=== PATIENT | male | born 1935 | race Caucasian/White ===

== ENCOUNTER 2017-06-23 10:04 | Inpatient (IN) | payer OTHER, MEDICAID ==
[~2017-06-23] VITALS: Ht 185.4 cm; Wt 79.5 kg
[2017-06-23] VITALS (11 sets, daily range): BP systolic 122–152; BP diastolic 58–81; PULSE 34–52; RESP 18–20; Ht 185.4 cm; Wt 79.5 kg
[2017-06-23] MEDS ORDERED: ASPIRIN 81 MG TAB PO ONE (10:30)
[2017-06-23] MEDS ORDERED: FUROSEMIDE 40 MG INJ IV ONE (10:30)
[2017-06-23] MEDS ORDERED: NITROGLYCERIN (SL) 0.4 MG TAB SL ONE (10:30)
[2017-06-23] MEDS ORDERED: ENALAPRILAT 1.25 MG INJ IV ONE (10:30)
[2017-06-23 10:50] LABS: BASOPHIL # 0.1 10^3/ul (0.0-0.1); BASOPHILS % 0.9 % (0.0-2.0); EOSINOPHILS # 0.2 10^3/ul (0.0-0.5); EOSINOPHILS % 2.3 % (0.0-7.0); HEMATOCRIT 39.3 % (42.0-52.0); HEMOGLOBIN 12.3 g/dl (14.0-18.0); LYMPHOCYTES # 1.5 10^3/ul (0.8-2.9); LYMPHOCYTES % 20.9 % (15.0-51.0); MEAN CORPUSCULAR HEMOGLOBIN 26.8 pg (29.0-33.0); MEAN CORPUSCULAR HGB CONC 31.3 g/dl (32.0-37.0); MEAN CORPUSCULAR VOLUME 85.6 fl (82.0-101.0); MONOCYTE # 0.6 10^3/ul (0.3-0.9); MONOCYTES % 7.8 % (0.0-11.0); NEUTROPHIL # 4.8 10^3/ul (1.6-7.5); NEUTROPHILS % 67.8 % (39.0-77.0); PLATELET COUNT 143 10^3/UL (140-415); RED BLOOD COUNT 4.59 10^6/ul (4.70-6.10); RED CELL DISTRIBUTION WIDTH 14.3 % (11.5-14.5); WHITE BLOOD COUNT 7.1 10^3/ul (4.8-10.8)
--- NOTE | 2017-06-23 11:37 | RADRPT ---
PROCEDURE: XR Chest. CLINICAL INDICATION: Abdominal Pain TECHNIQUE: PA and Lateral views of the chest were obtained. COMPARISON: None. FINDINGS: Soft tissues project over an partially obscure both lung apices, limiting evaluation. There are low lung volumes. The cardiomediastinal silhouette is within normal limits for portable technique. There are atherosclerotic calcifications of the aortic arch. There is a probable small left pleural effusion with adjacent atelectasis. Underlying consolidation cannot be completely excluded. No pneumothorax or significant right pleural effusion is seen. No evidence of significant pulmonary vascular congestion. There are degenerative changes of the visualized spine. IMPRESSION: 1. Small left pleural effusion with adjacent atelectasis. Underlying consolidation cannot be compl etely excluded. 2. Thoracic aortic atherosclerotic disease. RPTAT: PP Physician Eduardo Date Time Electronically viewed and signed by Physician Eduardo on 06/23/2017 11:36 /
[2017-06-23] MEDS ORDERED: KETOROLAC 15 MG INJ IV STA (11:42)
[2017-06-23 11:45] LABS: ALANINE AMINOTRANSFERASE 29 IU/L (13-69); ALBUMIN 3.8 g/dl (3.3-4.9); ALBUMIN/GLOBULIN RATIO 1.35; ALKALINE PHOSPHATASE 36 IU/L (42-121); ANION GAP 18 (8-16); ASPARTATE AMINO TRANSFERASE 19 IU/L (15-46); BILIRUBIN,INDIRECT 0.2 mg/dl (0-1.1); BILIRUBIN,TOTAL 0.2 mg/dl (0.2-1.3); BLOOD UREA NITROGEN 15 mg/dl (7-20); CALCIUM 8.9 mg/dl (8.4-10.2); CARBON DIOXIDE 25 mmol/L (21-31); CHLORIDE 106 mmol/L (97-110); CREATININE 0.94 mg/dl (0.61-1.24); GLUCOSE 91 mg/dl (70-220); SODIUM 144 mmol/L (135-144); TOTAL PROTEIN 6.6 g/dl (6.1-8.1)
[2017-06-23 11:50] LABS: POTASSIUM 5.1 mmol/L (3.5-5.1)
--- NOTE | 2017-06-23 11:57 | ERA ---
ER Documentation Chief Complaint Date/Time DATE: 06/23/17 TIME: 11:50 Chief Complaint BROUGHT BY RA 100, c/o chest pain started 06 , HX HEART STENT ,AL HPI 81-year-old man brought in by EMS from home for complaints of pressure-like substernal chest pain beginning this morning around 6:30 AM. Pain has been constant nonradiating and similar to previous episodes of AL. Patient states he has a history of PCI with coronary artery stent placement. He states over the last 2 weeks his lower extremities have becomes more swollen, and that they are not usually this swollen. He denies fevers or chills, no cough, no headache or blurry vision, no loss of consciousness, no vomiting or diarrhea. ROS All systems reviewed and are negative except as per history of present illness. Medications Home Meds Reported Medications Acetaminophen with Codeine (Tylenol with Codeine #4 Tablet) 1 Each Tablet, 1 TAB PO, TAB 06/23/17 Tramadol Hcl* (Ultram*) 50 Mg Tablet, 50 MG PO Q6H Y for PAIN, TAB 06/23/17 Temazepam* (Temazepam*) 30 Mg Capsule, 30 MG PO HS Y for INSOMNIA, CAP 06/23/17 Tamsulosin Hcl* (Tamsulosin Hcl*) 0.4 Mg Cap.er.24h, 0.4 MG PO HS, CAP 06/23/17 Ropinirole Hcl* (Requip*) 1 Mg Tablet, 2 MG PO HS, TAB 06/23/17 Ranitidine Hcl* (Ranitidine Hcl*) 150 Mg Tablet, 150 MG PO Q12, #60 TAB 06/23/17 Potassium Chloride* (K-Dur*) 10 Meq Tab.prt.sr, 10 MEQ PO DAILY, TAB 06/23/17 Polyethylene Glycol* (Miralax*) 17 Gm Powd.pack, 17 GM PO DAILY, #30 PACKET 06/23/17 Metformin Hcl* (Metformin Hcl*) 1,000 Mg Tablet, 1000 MG PO WITH BREAKFAST DINNE , #30 TAB 06/23/17 Pregabalin* (Lyrica*) 75 Mg Capsule, 75 MG PO DAILY, CAP 06/23/17 Losartan Potassium* (Losartan Potassium*) 25 Mg Tablet, 25 MG PO DAILY, TAB 06/23/17 Insulin Detemir (Levemir Flextouch) 100 Unit/1 Ml Insuln.pen, 12 UNIT SQ AM 06/23/17 Insulin Aspart* (Novolog Insulin Pen*) 100 Unit/Ml Soln, 0 SC .SLIDING SCALE AC , EA 06/23/17 Diclofenac Sodium* (Voltaren* Gel) 1% -100 Gm Gel, 2 GM TOP BID, #1 TUB 06/23/17 Docusate Sodium* (Docusate Sodium*) 100 Mg Capsule, 100 MG PO DAILY, #30 CAP 06/23/17 Carvedilol* (Coreg*) 3.125 Mg Tablet, 3.125 MG PO BID, #60 TAB 06/23/17 Atorvastatin Calcium* (Atorvastatin Calcium*) 20 Mg Tablet, 20 MG PO QHS, #30 TAB 06/23/17 Amlodipine Besylate* (Amlodipine Besylate*) 10 Mg Tablet, 10 MG PO DAILY, #30 TAB 06/23/17 Aspirin* (Aspirin* Chew) 81 Mg Tab.chew, 81 MG PO DAILY, TAB.CHEW 06/23/17 Allergies Allergies: Coded Allergies: No Known Allergy (Unverified , 06/23/17) PMhx/Soc Hypertension, coronary artery disease, AL, congestive heart failure FmHx Family History: No diabetes Physical Exam Vitals Vital Signs Date Time Temp Pulse Resp B/P Pulse Ox O2 Delivery O2 Flow Rate FiO2 06/23/17 10:53 61 20 129/64 98 Nasal Cannula 2.0 06/23/17 10:05 97.6 65 20 116/62 97 06/23/17 10:05 Nasal Cannula 2 Physical Exam GENERAL: Well-developed, well-nourished, well-hydrated, in no apparent distress , looks nontoxic in appearance, afebrile HEENT: Moist mucous membranes, pink conjunctiva, no cervical spine tenderness or step-off deformities, no goiter, no jaundice or icterus, extraocular movements intact without pain. No submandibular induration, and no pharyngeal erythema NEURO: Alert and oriented 3, cranial nerves II through XII intact bilaterally, pupils equal round reactive to light, no focal deficits or facial asymmetry, sensation intact distally Strength 5/5 in upper and lower extremities bilaterally CARDIAC: Regular rate and rhythm, no murmurs rubs or gallops LUNGS: Clear bilaterally no wheezing crackles or stridor ABDOMEN: Soft nontender, no guarding, no rigidity, no rebound, no psoas sign no obturator sign. Normoactive bowel sounds SKIN: Warm and dry to touch, no abrasions, contusions, or hematomas, no lacerations, no ecchymosis, no target lesions, and without ulcers EXTREMITIES: No clubbing cyanosis, 3+ pitting edema in the lower extremities bilaterally calves are bilaterally symmetrical, no Homans sign, no popliteal cord sign. Distal pulses equal and bilateral PSYCH: Normal affect without agitation or irritability Result Diagram: 06/23/17 1032 06/23/17 1032 Results 24 hrs Laboratory Tests Test 06/23/17 10:32 White Blood Count 7.110^3/ul Red Blood Count 4.5910^6/ul Hemoglobin 12.3g/dl Hematocrit 39.3% Mean Corpuscular Volume 85.6fl Mean Corpuscular Hemoglobin 26.8pg Mean Corpuscular Hemoglobin Concent 31.3g/dl Red Cell Distribution Width 14.3% Platelet Count 08453^3/UL Mean Platelet Volume 11.0fl Neutrophils % 67.8% Lymphocytes % 20.9% Monocytes % 7.8% Eosinophils % 2.3% Basophils % 0.9% Nucleated Red Blood Cells % 0.0/100WBC Neutrophils # 4.810^3/ul Lymphocytes # 1.510^3/ul Monocytes # 0.610^3/ul Eosinophils # 0.210^3/ul Basophils # 0.110^3/ul Nucleated Red Blood Cells # 0.010^3/ul Sodium Level 144mmol/L Potassium Level 5.1mmol/L Chloride Level 106mmol/L Carbon Dioxide Level 25mmol/L Anion Gap 18 Blood Urea Nitrogen 15mg/dl Creatinine 0.94mg/dl Glucose Level 91mg/dl Calcium Level 8.9mg/dl Total Bilirubin 0.2mg/dl Direct Bilirubin 0.00mg/dl Indirect Bilirubin 0.2mg/dl Aspartate Amino Transf (AST/SGOT) 19IU/L Alanine Aminotransferase (ALT/SGPT) 29IU/L Alkaline Phosphatase 36IU/L Troponin I < 0.012ng/ml Total Protein 6.6g/dl Albumin 3.8g/dl Globulin 2.80g/dl Albumin/Globulin Ratio 1.35 Lipase 87U/L Current Medications Medications (Trade) Dose Ordered Sig/Phuc Route PRN Reason Start Time Stop Time Status Last Admin Dose Admin Aspirin (Aspirin) 324 mg ONCE ONCE PO 06/23/17 10:30 06/23/17 10:31 DC 06/23/17 10:43 Furosemide (Lasix) 40 mg ONCE ONCE IV 06/23/17 10:30 06/23/17 10:31 DC 06/23/17 10:40 Enalaprilat (Vasotec Iv) 1.25 mg ONCE ONCE IV 06/23/17 10:30 06/23/17 10:31 DC 06/23/17 10:40 Nitroglycerin (Nitroglycerin (Sl Tab) 0.4 Mg) 1 tab ONCE ONCE SL 06/23/17 10:30 06/23/17 10:31 DC 06/23/17 10:39 Procedures/MDM IV line was established patient was placed on padded products finisher rhythm strip revealed a wide-complex rhythm at about 60 bpm. Patient was afebrile. EKG performed, read by me revealed a sinus rhythm at 60 bpm with frequent pauses , left axis deviation and a right bundle branch block, QRS duration 156 ms, no concerning ST elevations or depressions noted. Chest X-ray 1V Interpreted by me: Soft Tissue: No acute abnormalities Bones: No acute abnormalities Mediastinum/Cardiac Silhouette/Lungs: No acute infiltrates, mild left pleural effusion, no pneumothorax, no end of the diaphragm I administered aspirin 324 mg p.o. for cardioprotective measures, enalapril 1.25 mg IV for hypertension, nitroglycerin 0.4 mg sublingual, and furosemide 40 mg IV 1 for diuresis. CBC and electrolytes are normal, liver function tests were normal, troponin was negative. Cardiac Critical Care: Time: 38 minutes, this was time separate from other billable procedures Treatments/Evaluations: Close monitoring for dangerous arrhythmia and cardiovascular collapse, while treating with advance cardiac medications and techniques. Patient was admitted to telemetry setting for continued medical management cardiology consultation. For chest pain he received Toradol 15 mg IV 1. Departure Diagnosis: Primary Impression: Chest pain Qualified Code: R07.9 - Chest pain, unspecified type Additional Impressions: Hypertension Qualified Code: I10 - Essential hypertension Pleural effusion Peripheral edema Condition: RAMIRO Heaton MD Jun 23, 2017 11:57 Procedures/MDM IV line was established patient was placed on padded products finisher rhythm strip revealed a wide-complex rhythm at about 60 bpm. Patient was afebrile. EKG performed, read by me revealed a sinus rhythm at 60 bpm with frequent pauses , left axis deviation and a right bundle branch block, QRS duration 156 ms, no concerning ST elevations or depressions noted. Chest X-ray 1V Interpreted by me: Soft Tissue: No acute abnormalities Bones: No acute abnormalities Mediastinum/Cardiac Silhouette/Lungs: No acute infiltrates, mild left pleural effusion, no pneumothorax, no end of the diaphragm I administered aspirin 324 mg p.o. for cardioprotective measures, enalapril 1.25 mg IV for hypertension, nitroglycerin 0.4 mg sublingual, and furosemide 40 mg IV 1 for diuresis. CBC and electrolytes are normal, liver function tests were normal, troponin was negative. Cardiac Critical Care: Time: 38 minutes, this was time separate from other billable procedures Treatments/Evaluations: Close monitoring for dangerous arrhythmia and cardiovascular collapse, while treating with advance cardiac medications and techniques. Patient was admitted to telemetry setting for continued medical management cardiology consultation. For chest pain he received Toradol 15 mg IV 1. Departure Diagnosis: Primary Impression: Chest pain Qualified Code: R07.9 - Chest pain, unspecified type Additional Impressions: Hypertension Qualified Code: I10 - Essential hypertension Pleural effusion Peripheral edema Condition: RAMIRO Heaton MD Jun 23, 2017 11:57
[2017-06-23 11:58] LABS: TROPONIN-I < 0.012 ng/ml (0.00-0.12)
[2017-06-23] MEDS ORDERED: INSU100I27 SQ (11:59)
[2017-06-23] MEDS ORDERED: NOVO3I SC (11:59)
[2017-06-23] MEDS ORDERED: TAMS0.4C2 PO (11:59)
[2017-06-23] MEDS ORDERED: CARV3.12 PO (11:59)
[2017-06-23] MEDS ORDERED: DICL100G37 TOP (11:59)
[2017-06-23] MEDS ORDERED: ATOR20TA38 PO (11:59)
[2017-06-23] MEDS ORDERED: METF1000 PO (11:59)
[2017-06-23] MEDS ORDERED: POLY17PO6 PO (11:59)
[2017-06-23] MEDS ORDERED: LYR75 PO (11:59)
[2017-06-23] MEDS ORDERED: RANI150T5 PO (11:59)
[2017-06-23] MEDS ORDERED: ACET-820 PO (11:59)
[2017-06-23] MEDS ORDERED: POTA10TA37 PO (11:59)
[2017-06-23] MEDS ORDERED: TRAM-40 PO (11:59)
[2017-06-23] MEDS ORDERED: AMLO-147 PO (11:59)
[2017-06-23] MEDS ORDERED: LOSA25TA5 PO (11:59)
[2017-06-23] MEDS ORDERED: ASPI81TA3 PO (11:59)
[2017-06-23] MEDS ORDERED: ROPI1TAB24 PO (11:59)
[2017-06-23] MEDS ORDERED: DOCU-159 PO (11:59)
[2017-06-23] MEDS ORDERED: TEMA30CA PO (11:59)
[2017-06-23] MEDS ORDERED: hydrALAzine 20 MG INJ IV PRN (12:00)
[2017-06-23] MEDS ORDERED: HYDROCODONE/APAP (5/325) TAB PO PRN (12:00)
[2017-06-23] MEDS ORDERED: NITROGLYCERIN (SL) 0.4 MG TAB SL PRN (12:00)
[2017-06-23] MEDS ORDERED: DOCUSATE SODIUM 100 MG CAP PO PRN (12:00)
[2017-06-23] MEDS ORDERED: ACETAMINOPHEN 325 MG TAB PO PRN ×2 (12:00→18:30)
[2017-06-23] MEDS ORDERED: NACL 0.9% 3 ML SYG IV SCH (12:00)
[2017-06-23] MEDS ORDERED: ACETAMINOPHEN 650 MG SUPP PR PRN (12:00)
[2017-06-23] MEDS ORDERED: ONDANSETRON 4 MG INJ IV PRN (12:00)
[2017-06-23] MEDS ORDERED: ZOLPIDEM 5 MG TAB PO PRN (14:00)
[2017-06-23] MEDS ORDERED: NA PHOSPHATE/BIPHOS 133 ML ENEMA PR PRN (14:00)
--- NOTE | 2017-06-23 14:09 | HP ---
Date/Time of Note Date/Time of Note DATE: 06/23/17 TIME: 13:54 Assessment/Plan VTE Prophylaxis VTE Prophylaxis Intervention: LMWH Lines/Catheters IV Catheter Type (from Nrsg): Saline Lock Assessment/Plan Chief Complaint/Hosp Course 1. Chest pain, rule out acute coronary syndrome versus other. -Admit to telemetry -Serial EKG, 2D echocardiogram, serial cardiac enzyme markers. -Aspirin, sublingual nitroglycerin PRN, prophylactic anticoagulation and morphine PRN -Hold beta-jaylyn secondary to bradycardia. -Cardiology consult due to high risk factors. 2. Peripheral edema, rule out congestive heart failure. Chest x-ray with possible pleural effusion per chest x-ray findings. -Patient is status post Lasix. We will continue Low-dose diuretics -Obtain BNP, 2D echocardiogram. -Obtain CT chest for further investigation on x-ray finding. 3. Essential hypertension. -Resume Norvasc. Again, we will hold Coreg secondary to bradycardia. -Follow-up with cardiology recommendation. -Hydralazine PRN for SBP above 160. 4. Type 2 diabetes. -Obtain A1c. We will place patient on Accu-Cheks and insulin sliding scale. -Lantus 12 units daily. -Hold metformin for now. 5. Sinus arrhythmia/bradycardia -Hold beta-blockers and cardiology consult for further management. 6. Hypercholesterolemia. -Resume home statin. 7. Insomnia -Resume home medications 8. Chronic constipation -Resume home medications, if not effective, Fleet enema will be provided. DVT prophylaxis: Lovenox PUD prophylaxis: Pepcid Plan: Patient will be admitted to telemetry. We will continue to monitor EKG and cardiac enzymes. Follow-up with 2D echocardiogram, A1c, TSH and lipid panel. The rest of the management depend on clinical course, further studies and input from enterprise resource planning consultant. Approximately 60 minutes was spent on this history and physical. Case discussed with Dr. Candelaria Problems: HPI/ROS Admit Date/Time Admit Date/Time Jun 23, 2017 at 11:15 Hx of Present Illness This is a 81-year-old male with a past medical history of essential hypertension , coronary artery disease with reported PCI with stent placed in the past, type 2 diabetes, hypercholesterolemia, insomnia, obesity, chronic constipation, arthritis, BPH, left total knee replacement, cranial surgery for brain tumor, occasional urinary incontinence, recent urinary tract infection, who was brought by EMS with complaints of left-sided chest pain which started this morning around 6:30 AM. Patient was asked to call EMS and go to the emergency room by his primary care provider. Patient denied any radiation of his pain. Pain was reproducible with movement and touch. He also reported pain being constant. Patient also reported worsening constipation with abdominal pain and lower extremity swelling which started 2 weeks ago. Patient denied any fever, chills, dizziness, loss of consciousness, diarrhea, nausea, vomiting, headache, cough or other constitutional symptoms. Initial vital signs temperature 97.6 pulse rate 65 respiratory rate 20, blood pressure 116/62 and oxygen saturation 97%.. CBC and BMP within acceptable range. Initial troponin negative. EKG with sinus rhythm at 60 bpm with right bundle branch block. However, his heart rate remained in the lower side at high mid 40s in the emergency room. Chest x-ray with small left pleural effusion with adjacent atelectasis, underlying consolidation cannot be completely excluded. patient received aspirin 324 mg, sublingual nitroglycerin 0.4 mg and Lasix 40 mg IV in the emergency room. Patient also received Vasotec 1.25 mg IV in the emergency room, however I am unable to locate a high blood pressure on this patient in the emergency room. A clinical decision was made to admit him for further evaluation. ROS A 12 point review of system was assessed and is negative other than what is mentioned in HPI. PMH/Family/Social Past Medical History See HPI Past Surgical History See HPI Social History Denied history of smoking, alcohol or illicit drug use. Smoking Status: Never smoker Exam/Review of Systems Vital Signs Vitals Vital Signs Date Time Temp Pulse Resp B/P Pulse Ox O2 Delivery O2 Flow Rate FiO2 06/23/17 13:11 45 06/23/17 13:00 97.8 20 152/81 98 Nasal Cannula 2.0 Exam Exam General: Well developed,adequately built, not in any acute distress . HEENT: Normocephalic, Atraumatic, No laceration or hematoma; Eyes: PEERL, Conjunctiva clear, Anicteric sclera Neck: Supple without any lymphadenopathy, nontender, no JVD, no carotid bruits, trachea midline, no thyromegaly Cardiac: S1, S2 auscultated, regular rhythm and rate, no mumurs or gallop Pulmonary: Diminished breath sound bibasilar. Normal respiratory effort. Chest clear to auscultation bilaterally, no adventitious breath sounds GI: Abdomen normal to inspection. Soft, non tender, non- distended, no masses, no rebound tenderness or guarding. Bowel sounds active on all four quadrants Genitourinary: Deferred Extremities: 2+ pitting edema on bilateral lower extremities. No cyanosis, clubbing. Pulses [2+] bilaterally. Full ROM on all four extremities. No focal weakness appreciated. Neurologic: Alert to person, place, time, and situation. Affect appropriate, intact sensation. Skin: Clean,dry, and intact. No ecchymosis, no rashes, or lesions Labs Result Diagram: 06/23/17 1032 06/23/17 1032 Medications Medications Current Medications Ondansetron HCl (Zofran Inj) 4 mg Q6H PRN IV NAUSEA AND/OR VOMITING; Start at 12:00 Acetaminophen (Tylenol Tab) 650 mg Q6H PRN PO PAIN LEVEL 1-3 OR FEVER; Start at 12:00 Acetaminophen (Tylenol Supp) 650 mg Q6H PRN [place] PAIN LEVEL 1-3 OR FEVER; Start 06/23/17 at 12:00 Acetaminophen/ Hydrocodone Bitart ([place] (5/325)) 1 tab Q6H PRN PO MODERATE PAIN LEVEL 4-6; Start 06/23/17 at 12:00 Morphine Sulfate (morphine) 2 mg Q4H PRN IV SEVERE PAIN LEVEL 7-10; Start 06/23 at 12:00 Docusate Sodium (Colace) 100 mg Q12H PRN PO CONSTIPATION; Start 06/23/17 at 12: 00 Famotidine (Pepcid) 20 mg Q12 PO ; Start 06/23/17 at 21:00 Enoxaparin Sodium (Lovenox) 40 mg DAILY SC ; Start 06/24/17 at 09:00 Aspirin (Aspirin) 81 mg DAILY PO ; Start 06/24/17 at 09:00 Nitroglycerin (Nitroglycerin (Sl Tab) 0.4 Mg) 1 tab Q5M PRN SL ANGINA; Start at 12:00 Hydralazine HCl (Apresoline) 10 mg Q6 PRN IV SBP>160; Start 06/23/17 at 12:00 Amlodipine Besylate (Norvasc) 10 mg DAILY PO ; Start 06/24/17 at 09:00; Status UNV Atorvastatin Calcium (Lipitor) 20 mg QHS PO ; Start 06/23/17 at 21:00; Status UNV Diclofenac Sodium (Voltaren 1% Gel) 2 gm BID TP ; Start 06/23/17 at 21:00; Status UNV Docusate Sodium (Colace) 100 mg DAILY PO ; Start 06/24/17 at 09:00; Status UNV Losartan Potassium (Cozaar) 25 mg DAILY PO ; Start 06/24/17 at 09:00; Status UNV Polyethylene Glycol (Miralax) 17 gm DAILY PO ; Start 06/24/17 at 09:00; Status UNV Pregabalin (Lyrica) 75 mg DAILY PO ; Start 06/24/17 at 09:00; Status UNV Ropinirole HCl (Requip) 2 mg HS PO ; Start 06/23/17 at 21:00; Status UNV Tamsulosin HCl (Flomax) 0.4 mg HS PO ; Start 06/23/17 at 21:00; Status UNV Miscellaneous Information 30 mg HS PRN PO INSOMNIA; Start 06/23/17 at 14:00; Status UNV MARV LEWIS NP Jun 23, 2017 14:04
[2017-06-23] MEDS: morphine 2 MG INJ IV PRN ×2 (14:19→21:15)
[2017-06-23] MEDS ORDERED: GLUCOSE GEL 15 GRAM TUBE PO PRN ×2 (14:30)
[2017-06-23] MEDS ORDERED: DEXTROSE 50% 50 ML SYRINGE IV PRN ×2 (14:30)
[2017-06-23] MEDS ORDERED: GLUCAGON 1 MG INJ IM PRN (14:30)
[2017-06-23] MEDS ORDERED: GLUCOSE GEL 15 GRAM TUBE BUCCAL PRN (14:30)
--- NOTE | 2017-06-23 15:07 | RADRPT ---
Echocardiogram Report Patient Name: MADHURI ROJO Gender: Male Date: 1935 Study Date: 23-Jun-2017 Bin Piler: Kamran [facility] Location: [id number] Ref. Physician: MARV LEWIS Quality: Adequate Procedures: Transthoracic echocardiogram with complete 2D, M-Mode, and doppler examination. Indications: Chest Pain. 2D/M Mode Doppler Measurement Value Normal Ranges Measurement Value Normal Ranges LVIDd 2D 4.2 3.5 - 5.6 cm AV Peak Brent 1.2 m/sec LVIDs 2D 2.8 2.1 - 4.1 cm AV Peak PG 6.0 mmHg FS 2D 34.2 % AI Peak PG 25.0 mmHg LVPWd 2D 1.4 0.6 - 1.1 cm AI Peak Brent 2.5 m/sec IVSd 2D 1.3 0.6 - 1.1 cm AI PHT 1026.0 msec IVS/LVPW 2D 1.0 LVOT Peak Brent 1.1 m/sec AoR Diam 2D 3.1 2.0 - 3.7 cm LVOT Peak PG 5.0 mmHg LA/Ao 2D 1 0 - 1 MV E Peak Brent 0.8 m/sec EDV 2D 76.2 cm3 MV A Peak Brent 0.5 m/sec ESV 2D 21.7 cm3 MV E/A 1.4 LA Dimen 2D 4.0 2.3 - 4.0 cm MV Decel Time 296 msec MV E/A 1.4 TR Peak Brent 2.6 m/sec TR Peak PG 28.0 mmHg RVSP 38.0 mmHg Findings Left Ventricle: Normal left ventricular systolic function. Normal left ventricular cavity size. Mild concentric left ventricular hypertrophy. Ejection fraction is visually estimated at 55 %. Right Ventricle: Normal right ventricular size. Normal right ventricular systolic function. Left Atrium: The left atrium is normal in size. Right Atrium: The right atrium is normal in size. Mitral Valve: Mitral valve leaflets appear mildly thickened. Mild mitral annular calcification. Trace mitral regurgitation. Aortic Valve: Aortic sclerosis without stenosis. Mild aortic valve regurgitation. Tricuspid Valve: Normal appearance of the tricuspid valve. Estimated peak PA systolic pressure 38 mmHg. There is mild tricuspid regurgitation. Pulmonic Valve: Pulmonic valve not well visualized. There is trace pulmonic regurgitation. Pericardium: Normal pericardium with no significant pericardial effusion. Aorta: Normal aortic root. IVC: Normal size and normal respiratory collapse consistent with normal right atrial pressure. Conclusions 1.Normal left ventricular systolic function. Normal left ventricular cavity size. Mild concentric left ventricular hypertrophy. Ejection fraction is visually estimated at 55 %. 2.Mitral valve leaflets appear mildly thickened. Mild mitral annular calcification. Trace mitral regurgitation. 3.Aortic sclerosis without stenosis. Mild aortic valve regurgitation. 4.Normal appearance of the tricuspid valve. Estimated peak PA systolic pressure 38 mmHg. There is mild tricuspid regurgitation. Electronically Signed By: Sheldon Loera 23-Jun-2017 15:05:37 -0700 Patient Name: MADHURI ROJO Study Date: 23-Jun-2017 [id number]
[2017-06-23 16:59] LABS: CREATINE KINASE 51 IU/L (23-200)
[2017-06-23] MEDS: INSULIN ASPART [NOVOLOG] 3 ML PEN SC SCH ×2 (17:08→21:00)
[2017-06-23 17:23] LABS: CK-MB 1.08 ng/ml (0.0-2.4); TROPONIN-I < 0.012 ng/ml (0.00-0.12)
[2017-06-23] MEDS ORDERED: ROPINIROLE 2 MG PO SCH (21:00)
[2017-06-23] MEDS: FAMOTIDINE 20 MG TAB PO SCH (21:00)
[2017-06-23] MEDS: INSULIN GLARGINE [LANtus] 3 ML PEN SC SCH (21:00)
[2017-06-23] MEDS: DICLOFENAC SODIUM 1% GEL 100 GM TUBE TP SCH (21:00)
[2017-06-23] MEDS: TAMSULOSIN (SR) 0.4 MG CAP PO SCH (21:00)
[2017-06-23] MEDS: ATORVASTATIN 20 MG TAB PO SCH (21:00)
[2017-06-23] MEDS ORDERED: ROPINIROLE 1 MG TAB PO SCH (21:00)
[2017-06-23] MEDS: ROPINIROLE 1 MG TAB PO SCH (21:00)
[2017-06-24] VITALS (10 sets, daily range): BP systolic 116–168; BP diastolic 58–72; PULSE 44–69; RESP 16–20
[2017-06-24 00:33] LABS: CREATINE KINASE 43 IU/L (23-200)
[2017-06-24 00:49] LABS: CK-MB 1.18 ng/ml (0.0-2.4); TROPONIN-I < 0.012 ng/ml (0.00-0.12)
[2017-06-24] MEDS ORDERED: ACCU-CHEK XX SCH (02:00)
[2017-06-24] MEDS: ACCU-CHEK XX SCH ×2 (02:00→21:10)
--- NOTE | 2017-06-24 03:15 | RADRPT ---
PROCEDURE: CT Chest without contrast. CLINICAL INDICATION: Pleural effusion. TECHNIQUE: CT scan of the chest without contrast was performed on a multidetector high-resolution CT scanner. Axial, sagittal and coronal reformatted images were obtained from the axial source imag es. The total exam CTDI equals 15.98 mGy and the total exam DLP equals 617.63 mGy-cm. 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 Slight atelectasis of the posterior c ostophrenic angles. The lungs otherwise clear. No focal opacification, effusion, pneumothorax, arnold a, or nodules are seen. There is no pulmonary infiltrate. No mass lesion to suggest neoplasm is id entified. The central tracheobronchial tree is clear. There is a large hiatal hernia containing the proximal to mid stomach and fat. The mediastinum is unremarkable without evidence for mass or lymphadenopathy. The vascular structur es of the mediastinum are normal in course and caliber. Aortic vascular calcifications and coronary artery calcifications are present. The heart size is enlarged, without evidence for pericardial th ickening or effusion. The axillary regions, subpectoral regions, and supraclavicular regions are all unremarkable. The renteria rrounding chest wall is unremarkable. Imaging obtained through the upper abdomen reveals dystrophic calcifications in the region of the pancreatic head. The surrounding osseous structures are remark able for degenerative spondylosis of the spine. No osteolytic or osteoblastic lesion is detected. IMPRESSION: 1. No pleural effusion. 2. Large hiatal hernia contains the proximal to mid stomach and fat. 3. Cardiomegaly, with atherosclerotic calcifications in the thoracic aorta and coronary arteries. Physician Casie Date Time Electronically viewed and signed by Physician Casie on 06/24/2017 03:15 RS/
[2017-06-24 06:51] LABS: BASOPHIL # 0.1 10^3/ul (0.0-0.1); BASOPHILS % 0.8 % (0.0-2.0); EOSINOPHILS # 0.1 10^3/ul (0.0-0.5); EOSINOPHILS % 2.3 % (0.0-7.0); HEMATOCRIT 39.6 % (42.0-52.0); HEMOGLOBIN 12.5 g/dl (14.0-18.0); LYMPHOCYTES # 1.4 10^3/ul (0.8-2.9); LYMPHOCYTES % 22.2 % (15.0-51.0); MEAN CORPUSCULAR HEMOGLOBIN 26.9 pg (29.0-33.0); MEAN CORPUSCULAR HGB CONC 31.6 g/dl (32.0-37.0); MEAN CORPUSCULAR VOLUME 85.3 fl (82.0-101.0); MEAN PLATELET VOLUME 10.9 fl (7.4-10.4); MONOCYTE # 0.5 10^3/ul (0.3-0.9); MONOCYTES % 7.6 % (0.0-11.0); NEUTROPHIL # 4.1 10^3/ul (1.6-7.5); NEUTROPHILS % 66.9 % (39.0-77.0); PLATELET COUNT 138 10^3/UL (140-415); POSITIVE DIFF @See below; RED BLOOD COUNT 4.64 10^6/ul (4.70-6.10); WHITE BLOOD COUNT 6.1 10^3/ul (4.8-10.8)
[2017-06-24 07:11] LABS: CREATINE KINASE 39 IU/L (23-200)
[2017-06-24 07:42] LABS: CALCIUM 8.9 mg/dl (8.4-10.2); CREATININE 1.02 mg/dl (0.61-1.24); MAGNESIUM 1.7 mg/dl (1.7-2.5); PHOSPHORUS 4.5 mg/dl (2.5-4.9); POTASSIUM 4.4 mmol/L (3.5-5.1)
[2017-06-24 07:53] LABS: CK-MB 1.27 ng/ml (0.0-2.4); TROPONIN-I < 0.012 ng/ml (0.00-0.12)
[2017-06-24] MEDS: INSULIN ASPART [NOVOLOG] 3 ML PEN SC SCH ×4 (08:00→21:00)
[2017-06-24 08:07] LABS: ALBUMIN 3.3 g/dl (3.3-4.9); ALBUMIN/GLOBULIN RATIO 1.37; BILIRUBIN,INDIRECT 0.2 mg/dl (0-1.1); BILIRUBIN,TOTAL 0.2 mg/dl (0.2-1.3); CALCIUM 9.1 mg/dl (8.4-10.2); CREATININE 0.98 mg/dl (0.61-1.24); POTASSIUM 4.4 mmol/L (3.5-5.1); TOTAL PROTEIN 5.7 g/dl (6.1-8.1)
[2017-06-24] MEDS ORDERED: AMLODIPINE 10 MG TAB PO SCH (09:00)
[2017-06-24] MEDS ORDERED: LOSARTAN 25 MG TAB PO SCH (09:00)
[2017-06-24] MEDS ORDERED: ENOXAPARIN 40 MG/0.4 ML SYG SC SCH (09:00)
[2017-06-24] MEDS ORDERED: DOCUSATE SODIUM 100 MG CAP PO SCH (09:00)
[2017-06-24] MEDS ORDERED: ASPIRIN 81 MG TAB PO SCH (09:00)
[2017-06-24] MEDS ORDERED: PREGABALIN 75 MG CAP PO SCH (09:00)
[2017-06-24] MEDS ORDERED: FUROSEMIDE 20 MG INJ IV SCH (09:00)
[2017-06-24] MEDS ORDERED: POLYETHYLENE GLYCOL 17 GM PACKET PO SCH (09:00)
[2017-06-24] MEDS: FAMOTIDINE 20 MG TAB PO SCH ×2 (09:10→20:59)
[2017-06-24] MEDS: DICLOFENAC SODIUM 1% GEL 100 GM TUBE TP SCH ×2 (09:22→20:59)
[2017-06-24] MEDS ORDERED: PREGABALIN 25 MG CAP PO SCH (10:30)
[2017-06-24 12:21] LABS: THYROID STIMULATING HORMONE 2.98 MIU/L (0.465-4.680)
--- NOTE | 2017-06-24 13:24 | PN ---
Date/Time of Note Date/Time of Note DATE: 06/24/17 TIME: 13:19 Assessment/Plan VTE Prophylaxis VTE Prophylaxis Intervention: LMWH Lines/Catheters IV Catheter Type (from Nrs): Saline Lock Urinary Cath still in place: Yes Assessment/Plan Assessment/Plan 1. Chest pain, rule out acute coronary syndrome negative troponin and unremarkable echocardiography, having stress test now, home if negative 2. Peripheral edema, 3. Essential hypertension, controlled 4. Type 2 diabetes. A1c 6.5, continue on Accu-Cheks and insulin sliding scale with Lantus 12 units daily. 5. Sinus arrhythmia/bradycardia 6. Hypercholesterolemia, on statin 7. Insomnia, Resume home medications 8. Chronic constipation, -Resume home medications DVT prophylaxis: Lovenox PUD prophylaxis: Pepcid Exam/Review of Systems Vital Signs Vitals Vital Signs Date Time Temp Pulse Resp B/P Pulse Ox O2 Delivery O2 Flow Rate FiO2 06/24/17 11:52 98.4 51 16 129/66 94 06/24/17 00:00 Room Air 06/23/17 19:55 2.0 Intake and Output 06/23/17 06/23/17 06/24/17 15:00 23:00 07:00 Intake Total 450 ml 500 ml Output Total 650 ml 500 ml Balance -200 ml 0 ml Results Result Diagram: 06/24/17 0634 06/24/17 0634 Results 24 hrs Laboratory Tests Test 06/23/17 16:23 06/23/17 17:05 06/23/17 21:09 06/23/17 23:48 Creatine Kinase 51 43 Creatine Kinase Index 2.1 2.7 Creatinine Kinase MB (Mass) 1.08 1.18 Troponin I < 0.012 < 0.012 Bedside Glucose 126 159 Test 06/24/17 06:34 06/24/17 06:39 06/24/17 08:08 06/24/17 11:28 White Blood Count 6.1 Red Blood Count 4.64 L Hemoglobin 12.5 L Hematocrit 39.6 L Mean Corpuscular Volume 85.3 Mean Corpuscular Hemoglobin 26.9 L Mean Corpuscular Hemoglobin Concent 31.6 L Red Cell Distribution Width 14.0 Platelet Count 138 L Mean Platelet Volume 10.9 H Neutrophils % 66.9 Lymphocytes % 22.2 Monocytes % 7.6 Eosinophils % 2.3 Basophils % 0.8 Nucleated Red Blood Cells % 0.0 Neutrophils # 4.1 Lymphocytes # 1.4 Monocytes # 0.5 Eosinophils # 0.1 Basophils # 0.1 Nucleated Red Blood Cells # 0.0 Sodium Level 144 Potassium Level 4.4 Chloride Level 101 Carbon Dioxide Level 29 Anion Gap 18 H Blood Urea Nitrogen 21 H Creatinine 0.98 Glucose Level 92 Hemoglobin A1c 6.5 H Calcium Level 9.1 Phosphorus Level 4.5 Magnesium Level 1.7 Total Bilirubin 0.2 Direct Bilirubin 0.00 Indirect Bilirubin 0.2 Aspartate Amino Transf (AST/SGOT) 10 L Alanine Aminotransferase (ALT/SGPT) 24 Alkaline Phosphatase 45 B-Type Natriuretic Peptide 156 Total Protein 5.7 L Albumin 3.3 Globulin 2.40 Albumin/Globulin Ratio 1.37 Triglycerides Level 126 Cholesterol Level 86 L LDL Cholesterol, Calculated 33 HDL Cholesterol 28 L Cholesterol/HDL Ratio 3.0 Thyroid Stimulating Hormone (TSH) 2.980 Free Thyroxine 1.04 Creatine Kinase 39 Creatine Kinase Index 3.3 Creatinine Kinase MB (Mass) 1.27 Troponin I < 0.012 Bedside Glucose 87 107 Medications Medications Current Medications Ondansetron HCl (Zofran Inj) 4 mg Q6H PRN IV NAUSEA AND/OR VOMITING; Start at 12:00 Acetaminophen (Tylenol Supp) 650 mg Q6H PRN OR PAIN LEVEL 1-3 OR FEVER; Start 06/23/17 at 12:00 Acetaminophen/ Hydrocodone Bitart ([place] (5/325)) 1 tab Q6H PRN PO MODERATE PAIN LEVEL 4-6 Last administered on 06/23/17 19:45; Admin Dose 1 TAB; Start at 12:00 Morphine Sulfate (morphine) 2 mg Q4H PRN IV SEVERE PAIN LEVEL 7-10 Last administered on 06/23/17 21:15; Admin Dose 2 MG; Start 06/23/17 at 12:00 Docusate Sodium (Colace) 100 mg Q12H PRN PO CONSTIPATION Last administered on 19:45; Admin Dose 100 MG; Start 06/23/17 at 12:00 Famotidine (Pepcid) 20 mg Q12 PO Last administered on 06/24/17 09:10; Admin Dose 20 MG; Start 06/23/17 at 21:00 Enoxaparin Sodium (Lovenox) 40 mg DAILY SC Last administered on 06/24/17 09:17 ; Admin Dose 40 MG; Start 06/24/17 at 09:00 Aspirin (Aspirin) 81 mg DAILY PO Last administered on 06/24/17 09:10; Admin Dose 81 MG; Start 06/24/17 at 09:00 Nitroglycerin (Nitroglycerin (Sl Tab) 0.4 Mg) 1 tab Q5M PRN SL ANGINA; Start at 12:00 Hydralazine HCl (Apresoline) 10 mg Q6 PRN IV SBP>160; Start 06/23/17 at 12:00 Amlodipine Besylate (Norvasc) 10 mg DAILY PO Last administered on 06/24/17 09: 10; Admin Dose 10 MG; Start 06/24/17 at 09:00 Atorvastatin Calcium (Lipitor) 20 mg QHS PO Last administered on 06/23/17 21: 00; Admin Dose 20 MG; Start 06/23/17 at 21:00 Diclofenac Sodium (Voltaren 1% Gel) 2 gm BID TP Last administered on 06/24/17 09:22; Admin Dose 2 GM; Start 06/23/17 at 21:00 Docusate Sodium (Colace) 100 mg DAILY PO Last administered on 06/24/17 09:10; Admin Dose 100 MG; Start 06/24/17 at 09:00 Losartan Potassium (Cozaar) 25 mg DAILY PO Last administered on 06/24/17 09:10 ; Admin Dose 25 MG; Start 06/24/17 at 09:00 Polyethylene Glycol (Miralax) 17 gm DAILY PO Last administered on 06/24/17 09: 10; Admin Dose 17 GM; Start 06/24/17 at 09:00 Tamsulosin HCl (Flomax) 0.4 mg HS PO Last administered on 06/23/17 21:00; Admin Dose 0.4 MG; Start 06/23/17 at 21:00 Sodium Biphosphate/ Sodium Phosphate (Fleet Enema) 133 ml DAILY PRN [place] CONSTIPATION; Start 06/23/17 at 14:00 Furosemide (Lasix) 20 mg DAILY IV Last administered on 06/24/17 09:10; Admin Dose 20 MG; Start 06/24/17 at 09:00 Diagnostic Test (Pha) (Accu-Chek) 1 ea 02 XX ; Start 06/24/17 at 02:00 Insulin Glargine (Lantus) 12 unit DAILY@20 SC Last administered on 06/23/17 21 :00; Admin Dose 12 UNIT; Start 06/23/17 at 20:00 Miscellaneous Information 1 ea NOTE XX ; Start 06/23/17 at 14:30 Glucose (Glutose) 15 gm Q15M PRN PO DECREASED GLUCOSE; Start 06/23/17 at 14:30 Glucose (Glutose) 22.5 gm Q15M PRN PO DECREASED GLUCOSE; Start 06/23/17 at 14: 30 Dextrose (D50w Syringe) 25 ml Q15M PRN IV DECREASED GLUCOSE; Start 06/23/17 at 14:30 Dextrose (D50w Syringe) 50 ml Q15M PRN IV DECREASED GLUCOSE; Start 06/23/17 at 14:30 Glucagon (Glucagen) 1 mg Q15M PRN IM DECREASED GLUCOSE; Start 06/23/17 at 14:30 Glucose (Glutose) 15 gm Q15M PRN BUCCAL DECREASED GLUCOSE; Start 06/23/17 at 14 :30 Ropinirole HCl (Requip) 2 mg HS PO Last administered on 06/23/17 21:00; Admin Dose 2 MG; Start 06/23/17 at 21:00 Acetaminophen (Tylenol Tab) 650 mg Q6H PRN PO PAIN AND OR ELEVATED TEMP; Start 06/23/17 at 18:30 Pregabalin (Lyrica) 75 mg DAILY PO ; Start 06/24/17 at 10:30 CARLIN COMER MD Jun 24, 2017 13:24
--- NOTE | 2017-06-24 14:11 | PN ---
Date/Time of Note Date/Time of Note DATE: 06/24/17 TIME: 14:06 Assessment/Plan VTE Prophylaxis VTE Prophylaxis Intervention: other Lines/Catheters IV Catheter Type (from Nrs): Saline Lock Urinary Cath still in place: Yes Reason Cath still needed: other (indicate) Assessment/Plan Chief Complaint/Hosp Course 1. chest pain: atypical .R/O ACS 2. HX CAD: 3./ HX PCI 4/ HTN 5. Sinus bradycardia 6. dyslipidemia LEXISCAN Today. cont other cardiac care. Problems: Subjective 24 Hr Interval Summary Free Text/Dictation d/w staff and rhythm was reviewed. pt with no more ches tpain or pressure and wants to go home. OBJECTIVE: GEN: no acute distress HEENT: NCAT. pupils are equal CV RRR systolic murmur pulm no wheenzing anteriorly GI obese soft NT ND EXT Trace LE edema neuro awake and alert. psych calm and pleasant Exam/Review of Systems Vital Signs Vitals Vital Signs Date Time Temp Pulse Resp B/P Pulse Ox O2 Delivery O2 Flow Rate FiO2 06/24/17 13:27 49 06/24/17 11:52 98.4 16 129/66 94 06/24/17 00:00 Room Air 06/23/17 19:55 2.0 Intake and Output 06/23/17 06/23/17 06/24/17 15:00 23:00 07:00 Intake Total 450 ml 500 ml Output Total 650 ml 500 ml Balance -200 ml 0 ml Results Result Diagram: 06/24/17 0634 06/24/17 0634 Results 24 hrs Laboratory Tests Test 06/23/17 16:23 06/23/17 17:05 06/23/17 21:09 06/23/17 23:48 Creatine Kinase 51 43 Creatine Kinase Index 2.1 2.7 Creatinine Kinase MB (Mass) 1.08 1.18 Troponin I < 0.012 < 0.012 Bedside Glucose 126 159 Test 06/24/17 06:34 06/24/17 06:39 06/24/17 08:08 06/24/17 11:28 White Blood Count 6.1 Red Blood Count 4.64 L Hemoglobin 12.5 L Hematocrit 39.6 L Mean Corpuscular Volume 85.3 Mean Corpuscular Hemoglobin 26.9 L Mean Corpuscular Hemoglobin Concent 31.6 L Red Cell Distribution Width 14.0 Platelet Count 138 L Mean Platelet Volume 10.9 H Neutrophils % 66.9 Lymphocytes % 22.2 Monocytes % 7.6 Eosinophils % 2.3 Basophils % 0.8 Nucleated Red Blood Cells % 0.0 Neutrophils # 4.1 Lymphocytes # 1.4 Monocytes # 0.5 Eosinophils # 0.1 Basophils # 0.1 Nucleated Red Blood Cells # 0.0 Sodium Level 144 Potassium Level 4.4 Chloride Level 101 Carbon Dioxide Level 29 Anion Gap 18 H Blood Urea Nitrogen 21 H Creatinine 0.98 Glucose Level 92 Hemoglobin A1c 6.5 H Calcium Level 9.1 Phosphorus Level 4.5 Magnesium Level 1.7 Total Bilirubin 0.2 Direct Bilirubin 0.00 Indirect Bilirubin 0.2 Aspartate Amino Transf (AST/SGOT) 10 L Alanine Aminotransferase (ALT/SGPT) 24 Alkaline Phosphatase 45 B-Type Natriuretic Peptide 156 Total Protein 5.7 L Albumin 3.3 Globulin 2.40 Albumin/Globulin Ratio 1.37 Triglycerides Level 126 Cholesterol Level 86 L LDL Cholesterol, Calculated 33 HDL Cholesterol 28 L Cholesterol/HDL Ratio 3.0 Thyroid Stimulating Hormone (TSH) 2.980 Free Thyroxine 1.04 Creatine Kinase 39 Creatine Kinase Index 3.3 Creatinine Kinase MB (Mass) 1.27 Troponin I < 0.012 Bedside Glucose 87 107 Medications Medications Current Medications Ondansetron HCl (Zofran Inj) 4 mg Q6H PRN IV NAUSEA AND/OR VOMITING; Start at 12:00 Acetaminophen (Tylenol Supp) 650 mg Q6H PRN [place] PAIN LEVEL 1-3 OR FEVER; Start 06/23/17 at 12:00 Acetaminophen/ Hydrocodone Bitart ([place] (5/325)) 1 tab Q6H PRN PO MODERATE PAIN LEVEL 4-6 Last administered on 06/23/17 19:45; Admin Dose 1 TAB; Start at 12:00 Morphine Sulfate (morphine) 2 mg Q4H PRN IV SEVERE PAIN LEVEL 7-10 Last administered on 06/23/17 21:15; Admin Dose 2 MG; Start 06/23/17 at 12:00 Docusate Sodium (Colace) 100 mg Q12H PRN PO CONSTIPATION Last administered on 19:45; Admin Dose 100 MG; Start 06/23/17 at 12:00 Famotidine (Pepcid) 20 mg Q12 PO Last administered on 06/24/17 09:10; Admin Dose 20 MG; Start 06/23/17 at 21:00 Enoxaparin Sodium (Lovenox) 40 mg DAILY SC Last administered on 06/24/17 09:17 ; Admin Dose 40 MG; Start 06/24/17 at 09:00 Aspirin (Aspirin) 81 mg DAILY PO Last administered on 06/24/17 09:10; Admin Dose 81 MG; Start 06/24/17 at 09:00 Nitroglycerin (Nitroglycerin (Sl Tab) 0.4 Mg) 1 tab Q5M PRN SL ANGINA; Start at 12:00 Hydralazine HCl (Apresoline) 10 mg Q6 PRN IV SBP>160; Start 06/23/17 at 12:00 Amlodipine Besylate (Norvasc) 10 mg DAILY PO Last administered on 06/24/17 09: 10; Admin Dose 10 MG; Start 06/24/17 at 09:00 Atorvastatin Calcium (Lipitor) 20 mg QHS PO Last administered on 06/23/17 21: 00; Admin Dose 20 MG; Start 06/23/17 at 21:00 Diclofenac Sodium (Voltaren 1% Gel) 2 gm BID TP Last administered on 06/24/17 09:22; Admin Dose 2 GM; Start 06/23/17 at 21:00 Docusate Sodium (Colace) 100 mg DAILY PO Last administered on 06/24/17 09:10; Admin Dose 100 MG; Start 06/24/17 at 09:00 Losartan Potassium (Cozaar) 25 mg DAILY PO Last administered on 06/24/17 09:10 ; Admin Dose 25 MG; Start 06/24/17 at 09:00 Polyethylene Glycol (Miralax) 17 gm DAILY PO Last administered on 06/24/17 09: 10; Admin Dose 17 GM; Start 06/24/17 at 09:00 Tamsulosin HCl (Flomax) 0.4 mg HS PO Last administered on 06/23/17 21:00; Admin Dose 0.4 MG; Start 06/23/17 at 21:00 Sodium Biphosphate/ Sodium Phosphate (Fleet Enema) 133 ml DAILY PRN [place] CONSTIPATION; Start 06/23/17 at 14:00 Furosemide (Lasix) 20 mg DAILY IV Last administered on 06/24/17 09:10; Admin Dose 20 MG; Start 06/24/17 at 09:00 Diagnostic Test (Pha) (Accu-Chek) 1 ea 02 XX ; Start 06/24/17 at 02:00 Insulin Glargine (Lantus) 12 unit DAILY@20 SC Last administered on 06/23/17 21 :00; Admin Dose 12 UNIT; Start 06/23/17 at 20:00 Miscellaneous Information 1 ea NOTE XX ; Start 06/23/17 at 14:30 Glucose (Glutose) 15 gm Q15M PRN PO DECREASED GLUCOSE; Start 06/23/17 at 14:30 Glucose (Glutose) 22.5 gm Q15M PRN PO DECREASED GLUCOSE; Start 06/23/17 at 14: 30 Dextrose (D50w Syringe) 25 ml Q15M PRN IV DECREASED GLUCOSE; Start 06/23/17 at 14:30 Dextrose (D50w Syringe) 50 ml Q15M PRN IV DECREASED GLUCOSE; Start 06/23/17 at 14:30 Glucagon (Glucagen) 1 mg Q15M PRN IM DECREASED GLUCOSE; Start 06/23/17 at 14:30 Glucose (Glutose) 15 gm Q15M PRN BUCCAL DECREASED GLUCOSE; Start 06/23/17 at 14 :30 Ropinirole HCl (Requip) 2 mg HS PO Last administered on 06/23/17 21:00; Admin Dose 2 MG; Start 06/23/17 at 21:00 Acetaminophen (Tylenol Tab) 650 mg Q6H PRN PO PAIN AND OR ELEVATED TEMP; Start 06/23/17 at 18:30 Pregabalin (Lyrica) 75 mg DAILY PO ; Start 06/24/17 at 10:30 WAGNER TORRES MD Jun 24, 2017 14:11
--- NOTE | 2017-06-24 14:55 | RADRPT ---
PROCEDURE: Lexiscan myocardial perfusion study CLINICAL INDICATION: 81 -year-old patient complaining of chest pain. TECHNIQUE: Lexiscan 0.4 mg intravenously separate acquisition gated myocardial perfusion SPECT usi ng Tc 99m Myoview 30.6 mCi intravenously at stress and Tc-99m Myoview, 10.1 mCi intravenously at res t was performed using the rest/stress sequence. Poststress Myoview SPECT images were obtained in th e supine position. COMPARISON: No prior studies. FINDINGS: Perfusion images reveal a moderate size mild to moderate in degree nonreversible perfusion defect in the inferoapical and inferior oconnor. There is no evidence of stress-induced ischemia. Lexiscan post stress gated SPECT images demonstrate no wall motion abnormalities. IMPRESSION: 1. The type and distribution of the scintigraphic abnormalities are most consistent with a moderate -sized nonreversible perfusion defect in the inferoapical and inferior oconnor. 2. No wall motion abnormalities. 3. The left ventricle ejection fraction at stress is 58%. A call report was made to Dr. Loera at 02:53 p.m. on June 24, 2017. RPTAT: HH .Barbara Mathews MD, MD Date Time Electronically viewed and signed by .Barbara Mathews MD, on 06/24/2017 14:54 .L/
--- NOTE | 2017-06-24 15:47 | DS ---
Date/Time of Note Date/Time of Note DATE: 06/24/17 TIME: 15:41 Discharge Summary Admission/Discharge Info Admit Date/Time Jun 23, 2017 at 11:15 Discharge Date/Time Discharge Diagnosis 1. Chest pain, atypical,resolved, follow up with PCP 2. Peripheral edema, follow up with PCP 3. Essential hypertension, controlled 4. Type 2 diabetes. A1c 6.5, continue on Accu-Cheks and insulin sliding scale with Lantus 12 units daily. 5. Sinus arrhythmia/bradycardia 6. Hypercholesterolemia, on statin 7. Insomnia, Resume home medications 8. Chronic constipation, -Resume home medications Patient Condition: Stable Procedures [place] [address] Radiology Main Line: [phone] DIAGNOSTIC IMAGING REPORT Patient: MADHURI ROJO : 1935 Age: 81 Sex: M MR #: [id number] DOS: 06/24/17 0000 Ordering MD: WAGNER LOERA MD Location: [facility] – [place] Room/Bed: [facility] PROCEDURE: Lexiscan myocardial perfusion study CLINICAL INDICATION: 81 -year-old patient complaining of chest pain. TECHNIQUE: Lexiscan 0.4 mg intravenously separate acquisition gated myocardial perfusion SPECT using Tc 99m Myoview 30.6 mCi intravenously at stress and Tc-99m Myoview, 10.1 mCi intravenously at rest was performed using the rest/stress sequence. Poststress Myoview SPECT images were obtained in the supine position. COMPARISON: No prior studies. FINDINGS: Perfusion images reveal a moderate size mild to moderate in degree nonreversible perfusion defect in the inferoapical and inferior oconnor. There is no evidence of stress-induced ischemia. Lexiscan post stress gated SPECT images demonstrate no wall motion abnormalities. IMPRESSION: 1. The type and distribution of the scintigraphic abnormalities are most consistent with a moderate-sized nonreversible perfusion defect in the inferoapical and inferior oconnor. 2. No wall motion abnormalities. 3. The left ventricle ejection fraction at stress is 58%. A call report was made to Dr. Loera at 02:53 p.m. on June 24, 2017. RPTAT: HH .Barbara Mathews MD, Date Time Electronically viewed and signed by .Barbara Mathews MD, on 06/24/2017 14:54 .L/ CC: WAGNER LOERA MD Hx of Present Illness This is a 81-year-old male with a past medical history of essential hypertension , coronary artery disease with reported PCI with stent placed in the past, type 2 diabetes, hypercholesterolemia, insomnia, obesity, chronic constipation, arthritis, BPH, left total knee replacement, cranial surgery for brain tumor, occasional urinary incontinence, recent urinary tract infection, who was brought by EMS with complaints of left-sided chest pain which started this morning around 6:30 AM. Patient was asked to call EMS and go to the emergency room by his primary care provider. Patient denied any radiation of his pain. Pain was reproducible with movement and touch. He also reported pain being constant. Patient also reported worsening constipation with abdominal pain and lower extremity swelling which started 2 weeks ago. Patient denied any fever, chills, dizziness, loss of consciousness, diarrhea, nausea, vomiting, headache, cough or other constitutional symptoms. Initial vital signs temperature 97.6 pulse rate 65 respiratory rate 20, blood pressure 116/62 and oxygen saturation 97%.. CBC and BMP within acceptable range. Initial troponin negative. EKG with sinus rhythm at 60 bpm with right bundle branch block. However, his heart rate remained in the lower side at high mid 40s in the emergency room. Chest x-ray with small left pleural effusion with adjacent atelectasis, underlying consolidation cannot be completely excluded. patient received aspirin 324 mg, sublingual nitroglycerin 0.4 mg and Lasix 40 mg IV in the emergency room. Patient also received Vasotec 1.25 mg IV in the emergency room, however I am unable to locate a high blood pressure on this patient in the emergency room. A clinical decision was made to admit him for further evaluation. Hospital Course For chest pain, troponin is negative. Stress thallium test showed a fixed defect but no reversible defect. Patient is chest pain free today. No further cardiac work up needed. Patient has sinus bradycardia with HR 44. Normal TSH, coreg is held. follow up with cardiology outpatient. Blood pressure has been controlled. Home Meds Reported Medications Acetaminophen with Codeine (Tylenol with Codeine #4 Tablet) 1 Each Tablet, 1 TAB PO, TAB 06/23/17 Tramadol Hcl* (Ultram*) 50 Mg Tablet, 50 MG PO Q6H Y for PAIN, TAB 06/23/17 Temazepam* (Temazepam*) 30 Mg Capsule, 30 MG PO HS Y for INSOMNIA, CAP 06/23/17 Tamsulosin Hcl* (Tamsulosin Hcl*) 0.4 Mg Cap.er.24h, 0.4 MG PO HS, CAP 06/23/17 Ropinirole Hcl* (Requip*) 1 Mg Tablet, 2 MG PO HS, TAB 06/23/17 Ranitidine Hcl* (Ranitidine Hcl*) 150 Mg Tablet, 150 MG PO Q12, #60 TAB 06/23/17 Potassium Chloride* (K-Dur*) 10 Meq Tab.prt.sr, 10 MEQ PO DAILY, TAB 06/23/17 Polyethylene Glycol* (Miralax*) 17 Gm Powd.pack, 17 GM PO DAILY, #30 PACKET 06/23/17 Metformin Hcl* (Metformin Hcl*) 1,000 Mg Tablet, 1000 MG PO WITH BREAKFAST DINNE , #30 TAB 06/23/17 Pregabalin* (Lyrica*) 75 Mg Capsule, 75 MG PO DAILY, CAP 06/23/17 Losartan Potassium* (Losartan Potassium*) 25 Mg Tablet, 25 MG PO DAILY, TAB 06/23/17 Insulin Detemir (Levemir Flextouch) 100 Unit/1 Ml Insuln.pen, 12 UNIT SQ AM 06/23/17 Insulin Aspart* (Novolog Insulin Pen*) 100 Unit/Ml Soln, 0 SC .SLIDING SCALE AC , EA 06/23/17 Diclofenac Sodium* (Voltaren* Gel) 1% -100 Gm Gel, 2 GM TOP BID, #1 TUB 06/23/17 Docusate Sodium* (Docusate Sodium*) 100 Mg Capsule, 100 MG PO DAILY, #30 CAP 06/23/17 Carvedilol* (Coreg*) 3.125 Mg Tablet, 3.125 MG PO BID, #60 TAB 06/23/17 Atorvastatin Calcium* (Atorvastatin Calcium*) 20 Mg Tablet, 20 MG PO QHS, #30 TAB 06/23/17 Amlodipine Besylate* (Amlodipine Besylate*) 10 Mg Tablet, 10 MG PO DAILY, #30 TAB 06/23/17 Aspirin* (Aspirin* Chew) 81 Mg Tab.chew, 81 MG PO DAILY, TAB.CHEW 06/23/17 Follow-up Plan PCP in one week cardiology in one week Primary Care Provider Not On Staff Doctor Pending Labs Laboratory Tests Test 06/23/17 16:23 06/23/17 17:05 06/23/17 21:09 06/23/17 23:48 Creatine Kinase 51IU/L (23-200) 43IU/L (23-200) Creatine Kinase Index 2.1 2.7 Creatinine Kinase MB (Mass) 1.08ng/ml (0.0-2.4) 1.18ng/ml (0.0-2.4) Troponin I < 0.012ng/ml (0.00-0.12) < 0.012ng/ml (0.00-0.12) Bedside Glucose 126mg/dL (70-220) 159mg/dL (70-220) Test 06/24/17 06:34 06/24/17 06:39 06/24/17 08:08 06/24/17 11:28 White Blood Count 6.110^3/ul (4.8-10.8) Red Blood Count 4.6410^6/ul (4.70-6.10) Hemoglobin 12.5g/dl (14.0-18.0) Hematocrit 39.6% (42.0-52.0) Mean Corpuscular Volume 85.3fl (82.0-101.0) Mean Corpuscular Hemoglobin 26.9pg (29.0-33.0) Mean Corpuscular Hemoglobin Concent 31.6g/dl (32.0-37.0) Red Cell Distribution Width 14.0% (11.5-14.5) Platelet Count 75864^3/UL (140-415) Mean Platelet Volume 10.9fl (7.4-10.4) Neutrophils % 66.9% (39.0-77.0) Lymphocytes % 22.2% (15.0-51.0) Monocytes % 7.6% (0.0-11.0) Eosinophils % 2.3% (0.0-7.0) Basophils % 0.8% (0.0-2.0) Nucleated Red Blood Cells % 0.0/100WBC (0.0-0.0) Neutrophils # 4.110^3/ul (1.6-7.5) Lymphocytes # 1.410^3/ul (0.8-2.9) Monocytes # 0.510^3/ul (0.3-0.9) Eosinophils # 0.110^3/ul (0.0-0.5) Basophils # 0.110^3/ul (0.0-0.1) Nucleated Red Blood Cells # 0.010^3/ul (0.0-0.0) Sodium Level 144mmol/L (135-144) Potassium Level 4.4mmol/L (3.5-5.1) Chloride Level 101mmol/L (97-110) Carbon Dioxide Level 29mmol/L (21-31) Anion Gap 18 (8-16) Blood Urea Nitrogen 21mg/dl (7-20) Creatinine 0.98mg/dl (0.61-1.24) Glucose Level 92mg/dl (70-220) Hemoglobin A1c 6.5% (0-5.9) Calcium Level 9.1mg/dl (8.4-10.2) Phosphorus Level 4.5mg/dl (2.5-4.9) Magnesium Level 1.7mg/dl (1.7-2.5) Total Bilirubin 0.2mg/dl (0.2-1.3) Direct Bilirubin 0.00mg/dl (0.00-0.20) Indirect Bilirubin 0.2mg/dl (0-1.1) Aspartate Amino Transf (AST/SGOT) 10IU/L (15-46) Alanine Aminotransferase (ALT/SGPT) 24IU/L (13-69) Alkaline Phosphatase 45IU/L (42-121) B-Type Natriuretic Peptide 156PG/ML (0-450) Total Protein 5.7g/dl (6.1-8.1) Albumin 3.3g/dl (3.3-4.9) Globulin 2.40g/dl (1.3-3.2) Albumin/Globulin Ratio 1.37 Triglycerides Level 126mg/dl (0-149) Cholesterol Level 86mg/dl (100-200) LDL Cholesterol, Calculated 33mg/dl HDL Cholesterol 28mg/dl (31-75) Cholesterol/HDL Ratio 3.0RATIO Thyroid Stimulating Hormone (TSH) 2.980MIU/L (0.465-4.680) Free Thyroxine 1.04ng/dl (0.85-1.93) Creatine Kinase 39IU/L (23-200) Creatine Kinase Index 3.3 Creatinine Kinase MB (Mass) 1.27ng/ml (0.0-2.4) Troponin I < 0.012ng/ml (0.00-0.12) Bedside Glucose 87mg/dL (70-220) 107mg/dL (70-220) CARLIN COMER MD Jun 24, 2017 15:47
[2017-06-24] MEDS: TAMSULOSIN (SR) 0.4 MG CAP PO SCH (20:59)
[2017-06-24] MEDS: ROPINIROLE 1 MG TAB PO SCH (20:59)
[2017-06-24] MEDS: ATORVASTATIN 20 MG TAB PO SCH (20:59)
[2017-06-24] MEDS: INSULIN GLARGINE [LANtus] 3 ML PEN SC SCH (21:04)
--- NOTE | 2017-06-25 08:58 | RADRPT ---
Vent Rate: 57 bpm RR Interval: 0 msec AL Interval: 154 msec QRS Duration: 150 msec QT Interval: 466 msec QTC Interval: 453 msec P-R-T [place]: 62 - -52 - 38 degrees Sinus bradycardia with marked sinus arrhythmia Right bundle branch block Left anterior fascicular block Bifascicular block Abnormal ECG Electronically Signed By: Sheldon Loera [id number]
[2017-06-25] MEDS ORDERED: REGADENOSON 0.4 MG/5 ML SYG ONE (18:02)
--- NOTE | 2017-06-27 07:40 | CONS ---
DATE OF ADMISSION: 06/23/2017 DATE OF CONSULTATION: 06/23/2017 REASON FOR CONSULT: Chest pain. CHIEF COMPLAINT: Chest pain. HISTORY OF PRESENT ILLNESS: Thank you for the referral. I had a discussion with the and staff. This is a pleasant 81- year-old gentleman with history of coronary artery disease, status post PCI a few years ago, hypertension, had knee surgery, who came to the emergency room with complaint of chest pain. The patient stated the pain started today, this morning, almost constant. Could not explain infected, but appeared to be getting mostly tight. Still pain is sharp and it is continuous. She is here for workup. PAST MEDICAL HISTORY: History of coronary artery disease, status post PCI, history of dyslipidemia, insomnia, obesity, chronic constipation, BPH, arthritis, is on knee replacement, history of cranial surgery for brain tumor, history of diabetes. MEDICATIONS: As per medical reconciliation chart, I personally reviewed. SOCIAL HISTORY: The patient denies tobacco, alcohol, or drug use. FAMILY HISTORY: No history of coronary artery disease. REVIEW OF SYSTEMS: As above mentioned. VITAL SIGNS: Temperature 98, heart rate 48, blood pressure 122/58, respiratory rate 18, sating 97 percent. HEENT: Normocephalic, atraumatic. . CARDIOVASCULAR: Bradycardic. PULMONARY: Anteriorly no wheezes. CHEST: Positive for chest wall tenderness only to light touch. NEUROLOGIC: Awake and alert. PSYCHIATRIC: Alert, calm. EXTREMITIES: No edema. LABORATORY DATA: Sodium 144, potassium 5.1, BUN 15, creatinine 0.94, glucose 91, troponin negative times 2. WBC 7.1, hemoglobin 12.3, platelets 143. Chest x-ray shows small left pleural effusion, atelectasis, underlying consolidation cannot be ruled out. EKG shows tachycardia without bundle branch block, anterior fascicular block. ASSESSMENT AND PLAN: 1. Chest pain, appears to be non-anginal, reproducible. 2. History of coronary artery disease with history of percutaneous coronary intervention. 3. 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 4. Hypertension. 5. Hyperkalemia. 6. Diabetes. 7. Dyslipidemia. RECOMMENDATIONS: Beta-jaylyn has been discontinued due to some marked bradycardia. We will monitor the heart on telemetry. I will order LexiScan coronary artery disease given his history of coronary artery disease and PCI. Tylenol will be given for the pain as well as will be continued. Echocardiogram was already done. was done and showed ejection fraction appeared to be preservative at 55 percent. Thank you for the referral. Will continue to follow along with you. Dictated By: Sheldon Loera MD /maverick/ju /Document#: [id number]
== END 2017-06-24 22:45 | disposition home or self-care (01) | DRG 313 ==
LOC: E/R 10:04 → MS4 11:15
PROVIDERS: ADMIT Internal Medicine; ATTEND Internal Medicine
DX: R07.89 Other chest pain (principal); I25.10 Atherosclerotic heart disease of native coronary artery without angina pectoris; J90 Pleural effusion, not elsewhere classified; R00.1 Bradycardia, unspecified; I10 Essential (primary) hypertension; R60.9 Edema, unspecified; E11.9 Type 2 diabetes mellitus without complications; E78.00 Pure hypercholesterolemia, unspecified; G47.00 Insomnia, unspecified; K59.00 Constipation, unspecified; E78.5 Hyperlipidemia, unspecified; E66.9 Obesity, unspecified; Z68.23 Body mass index [BMI] 23.0-23.9, adult; E87.5 Hyperkalemia
CPT/HCPCS: 36415; 71010; 71250; 78452; 80048; 80053; 80061; 82550; 82553; 82962; 83036; 83690; 83735; 83880; 84100; 84439; 84443; 84484; 85025; 93005; 93017; 93306; 96374; 96375; 97162; J1940; A9500; A9505; J1650; J1815; J1885; J2270; J2785

== ENCOUNTER 2019-02-16 16:59 | Emergency (ER) | payer OTHER, MEDICAID ==
[~2019-02-16] VITALS: Ht 175.3 cm; Wt 109.0 kg
[~2019-02-16 16:59] MED LIST: ACET-820 PO; AMLO-147 PO; ASPI-903 PO; ATOR20TA38 PO; DICL100G37 TOP; DOCU-159 PO; INSU100I27 SQ; LOSA25TA12 PO; LYR75 PO; METF100010 PO; NOVO3I SC; POLY17PO6 PO; POTA10TA37 PO; RANI150T5 PO; ROPI1TAB41 PO; TAMS0.4C2 PO; TEMA30CA PO; TRAM50TA PO
[2019-02-16] MEDS ORDERED: morphine 4 MG/ML VIAL IV STA ×2 (17:23→23:48)
[2019-02-16] MEDS ORDERED: ONDANSETRON 4 MG INJ IV STA (17:23)
[2019-02-16 18:16] VITALS: Ht 175.3 cm; Wt 109.0 kg
[2019-02-16] MEDS ORDERED: IBUP-1542 PO (19:33)
[2019-02-16] MEDS ORDERED: SENN-120 PO (19:33)
[2019-02-16] MEDS ORDERED: DOCU-144 PO (19:33)
[2019-02-16] MEDS ORDERED: BISACODYL 10 MG SUPP PR ONE (20:00)
[2019-02-16] MEDS ORDERED: LACTULOSE 30ML CUP PO ONE (20:00)
--- NOTE | 2019-02-16 20:22 | ERD ---
ER Documentation Chief Complaint Chief Complaint Abd Pain HPI Patient is an 83-year-old male with coronary disease, hypertension, and diabetes who presents with abdominal pain. She is also complaining of chest pain and headache. He said that it started the other day. He reports constipation. He says that his last bowel movement was 2-3 weeks ago. He takes narcotics chronically. He tried stool softeners he says. Upon review of old medical records the patient one previous visit to the ER in 2017. Review of the emergency department information exchange system shows visits to 2 separate emergency departments. The patient does not remember the name of his primary doctor. ROS All systems reviewed and are negative except as per history of present illness. Medications Home Meds Active Scripts Sennosides* (Senna Lax*) 8.6 Mg Tablet, 1 TAB PO DAILY, #30 TAB Prov:WOOD HOLLAND MD 02/16/19 Docusate Sodium* (Colace*) 100 Mg Capsule, 100 MG PO TID, #30 CAP Prov:WOOD HOLLAND MD 02/16/19 Ibuprofen* (Motrin*) 600 Mg Tab, 600 MG PO Q6H PRN for PAIN AND OR ELEVATED TEMP, #30 TAB Prov:WOOD HOLLAND MD 02/16/19 Reported Medications Acetaminophen with Codeine (Tylenol with Codeine #4 Tablet) 1 Each Tablet, 1 TAB PO, TAB 06/23/17 Tramadol Hcl* (Ultram*) 50 Mg Tablet, 50 MG PO Q6H PRN for PAIN, TAB 06/23/17 Temazepam* (Temazepam*) 30 Mg Capsule, 30 MG PO HS PRN for INSOMNIA, CAP 06/23/17 Tamsulosin Hcl* (Tamsulosin Hcl*) 0.4 Mg Cap.er.24h, 0.4 MG PO HS, CAP 06/23/17 Ropinirole Hcl* (Requip*) 1 Mg Tablet, 2 MG PO HS, TAB 06/23/17 Ranitidine Hcl* (Ranitidine Hcl*) 150 Mg Tablet, 150 MG PO Q12, #60 TAB 06/23/17 Potassium Chloride* (K-Dur*) 10 Meq Tab.prt.sr, 10 MEQ PO DAILY, TAB 06/23/17 Polyethylene Glycol* (Miralax*) 17 Gm Powd.pack, 17 GM PO DAILY, #30 PACKET 06/23/17 Metformin Hcl* (Metformin Hcl*) 1,000 Mg Tablet, 1000 MG PO WITH BREAKFAST DINNE, #30 TAB 06/23/17 Pregabalin* (Lyrica*) 75 Mg Capsule, 75 MG PO DAILY, CAP 06/23/17 Losartan Potassium* (Losartan Potassium*) 25 Mg Tablet, 25 MG PO DAILY, TAB 06/23/17 Insulin Detemir (Levemir Flextouch) 100 Unit/1 Ml Insuln.pen, 12 UNIT SQ AM 06/23/17 Insulin Aspart* (Novolog Insulin Pen*) 100 Unit/Ml Soln, 0 SC .SLIDING SCALE AC, EA 06/23/17 Diclofenac Sodium* (Voltaren* Gel) 1% -100 Gm Gel, 2 GM TOP BID, #1 TUB 06/23/17 Docusate Sodium* (Docusate Sodium*) 100 Mg Capsule, 100 MG PO DAILY, #30 CAP 06/23/17 Atorvastatin Calcium* (Atorvastatin Calcium*) 20 Mg Tablet, 20 MG PO QHS, #30 TAB 06/23/17 Amlodipine Besylate* (Amlodipine Besylate*) 10 Mg Tablet, 10 MG PO DAILY, #30 TAB 06/23/17 Aspirin* (Aspirin* Chew) 81 Mg Tab.chew, 81 MG PO DAILY, TAB.CHEW 06/23/17 Allergies Allergies: Coded Allergies: No Known Allergy (Unverified , 06/23/17) PMhx/Soc History of Surgery: Yes (Left knee surgery, brain tumor surgery) Anesthesia Reaction: No Hx Neurological Disorder: No Hx Respiratory Disorders: No Hx Cardiac Disorders: Yes (Htn, high cholesterol, stent placement) Hx Psychiatric Problems: No Hx Alcohol Use: No Hx Substance Use: No Hx Tobacco Use: No Smoking Status: Never smoker FmHx Family History: No diabetes Physical Exam Vitals Vital Signs Date Temp Pulse Resp B/P (MAP) Pulse Ox O2 O2 Flow FiO2 Time Delivery Rate 02/16/19 63 23 145/55 100 Room Air 18:16 (85) 02/16/19 63 23 145/55 100 18:16 (85) Physical Exam Const: Moderate distress secondary to pain Head: Atraumatic Eyes: Normal Conjunctiva ENT: Normal External Ears, Nose and Mouth. Neck: Full range of motion. No meningismus. Resp: Clear to auscultation bilaterally Cardio: Regular rate and rhythm, no murmurs Abd: Soft, diffuse tenderness to palpation without rebound or guarding Skin: No petechiae or rashes Back: No midline or flank tenderness Ext: No cyanosis, or edema Neur: Awake and alert Psych: Normal Mood and Affect Result Diagram: 02/16/190 02/16/191739 Results 24 hrs Laboratory Tests Test 02/16/19 17:40 White Blood Count 6.7 10^3/ul Red Blood Count 4.99 10^6/ul Hemoglobin 13.1 g/dl Hematocrit 42.9 % Mean Corpuscular Volume 86.0 fl Mean Corpuscular Hemoglobin 26.3 pg Mean Corpuscular Hemoglobin Concent 30.5 g/dl Red Cell Distribution Width 13.4 % Platelet Count 169 10^3/UL Mean Platelet Volume 10.7 fl Immature Granulocytes % 0.300 % Neutrophils % 71.1 % Lymphocytes % 19.2 % Monocytes % 6.9 % Eosinophils % 1.7 % Basophils % 0.8 % Nucleated Red Blood Cells % 0.0 /100WBC Immature Granulocytes # 0.020 10^3/ul Neutrophils # 4.7 10^3/ul Lymphocytes # 1.3 10^3/ul Monocytes # 0.5 10^3/ul Eosinophils # 0.1 10^3/ul Basophils # 0.1 10^3/ul Nucleated Red Blood Cells # 0.0 10^3/ul Sodium Level 144 mmol/L Potassium Level 4.1 mmol/L Chloride Level 107 mmol/L Carbon Dioxide Level 32 mmol/L Anion Gap 5 Blood Urea Nitrogen 14 mg/dl Creatinine 1.03 mg/dl Est Glomerular Filtrat Rate mL/min mL/min Glucose Level 123 mg/dl Calcium Level 9.5 mg/dl Total Bilirubin 0.2 mg/dl Direct Bilirubin 0.00 mg/dl Indirect Bilirubin 0.2 mg/dl Aspartate Amino Transf (AST/SGOT) 14 IU/L Alanine Aminotransferase (ALT/SGPT) 14 IU/L Alkaline Phosphatase 58 IU/L Troponin I < 0.012 ng/ml Total Protein 6.9 g/dl Albumin 3.9 g/dl Globulin 3.00 g/dl Albumin/Globulin Ratio 1.30 Lipase 152 U/L Current Medications Medications Dose Sig/Phuc Start Time Status Last (Trade) Ordered Route PRN Stop Time Admin Dose Reason Admin Morphine 4 mg ONCE STAT 02/16/19 DC 02/16/19 Sulfate IV 17:23 18:21 (morphine) 02/16/19 17:24 Ondansetron 4 mg ONCE STAT 02/16/19 DC 02/16/19 HCl (Zofran IV 17:23 18:22 Inj) 02/16/19 17:24 Lactulose 20 gm ONCE ONCE 02/16/19 DC (Enulose) PO 20:00 02/16/19 20:01 Bisacodyl 10 mg ONCE ONCE 02/16/19 DC (Dulcolax OK 20:00 Supp) 02/16/19 20:01 Procedures/MDM Chest x-ray read by radiology. CT abdomen pelvis read by radiology. Patient is a 83-year-old male presents with abdominal pain. Laboratory studies were basically normal. CT scan shows no sign of obstruction or surgical process at this time. X-ray shows no pneumonia or pneumothorax. At this point I doubt appendicitis, cholecystitis, pancreatitis, or bowel obstruction. The patient will be discharged back to home. He was given lactulose and Dulcolax in the emergency department to assist with bowel movement. He will be given a prescription for Colace and senna as well as ibuprofen for pain. He will need to follow-up with his primary doctor within 24 hours for reevaluation. He can return sooner for any worsening symptoms. Departure Diagnosis: Primary Impression: Constipation Constipation type: unspecified constipation type Qualified Codes: K59.00 - Constipation, unspecified Additional Impression: Abdominal pain Abdominal location: generalized Qualified Codes: R10.84 - Generalized abdominal pain Condition: Fair Patient Instructions: Abdominal Pain, Constipation (Adult) Additional Instructions: Call your primary care doctor TOMORROW for an appointment during the next 1-2 days.See the doctor sooner or return here if your condition worsens before your appointment time. WOOD HOLLAND MD Feb 16, 2019 20:22
[2019-02-16] MEDS ORDERED: KETOROLAC 30 MG INJ IV STA (20:32)
[2019-02-16] MEDS ORDERED: LYR75 PO (20:58)
[2019-02-16] MEDS ORDERED: LANT3I SC (20:59)
[2019-02-16] MEDS ORDERED: LOSA25TA12 PO (20:59)
[2019-02-16] MEDS ORDERED: TAMS0.4C2 PO (21:00)
[2019-02-16] MEDS ORDERED: TEMA30CA PO (21:00)
[2019-02-16] MEDS ORDERED: ATOR20TA38 PO (21:00)
[2019-02-16] MEDS ORDERED: AMLO-147 PO (21:01)
[2019-02-16] MEDS ORDERED: INSU100I35 SQ (21:02)
[2019-02-16] MEDS ORDERED: ROPI1TAB PO (21:03)
[2019-02-16] MEDS ORDERED: METF100010 PO (21:03)
[2019-02-17] VITALS: BP 129/53; PULSE 68; RESP 20
== END 2019-02-17 | disposition home or self-care (01) ==
LOC: E/R 16:59
DX: K59.00 Constipation, unspecified (principal); I10 Essential (primary) hypertension; E11.9 Type 2 diabetes mellitus without complications; Z79.4 Long term (current) use of insulin; Z79.82 Long term (current) use of aspirin; Z98.61 Coronary angioplasty status
CPT/HCPCS: 36415; 71045; 74176; 80053; 83690; 84484; 85025; 93005; 96374; 96375; 99285; J1885; J2270; J2405